=== PATIENT | female | born 1985 | race Caucasian/White ===

== ENCOUNTER 2017-01-08 22:23 | Inpatient (IN) ==
--- NOTE | 2017-01-08 22:42 | Emergency Department Note ---
Disposition Clinical Impression: Suicidal ideation Depression Qualifiers: Depression Type: unspecified Qualified Code(s): F32.9 - Major depressive disorder, single episode, unspecified Disposition: Still a Patient Condition: Fair Referrals: Unassigned,Provider [Primary Care Provider] - Forms: ED Satisfaction Letter Time of Disposition: 22:52 Psych HPI - General Chief Complaint: ED Psychiatric Symptoms Stated Complaint: "SI/Depressed" Time Seen by Provider: 01/08/17 22:32 Source: patient, family Mode of arrival: ambulatory Limitations: no limitations Nursing Notes Reviewed: Yes Vital Signs Reviewed: Yes - History of Present Illness HPI Narrative: Patient feels depressed and suicidal. She has thoughts of wrecking her car into a tree. She is methamphetamine several days ago. She denies other drugs or alcohol. She has a history of depression but does not take her antidepressant medications "because I did not think I needed them anymore." She presents in the care of her significant other and child Pt complaint: suicidal ideation, feels depressed Onset (ago): day(s) Duration: intermittent History of similar episodes: Yes Improves with: none Worsens with: none Context: recent drug abuse Alleged intoxication: No Associated Psychiatric Symptoms: depression, suicidal ideation Associated symptoms: Reports: denies other symptoms Traumatic symptoms: denies traumatic injury Treatments prior to arrival: none Self harm or harm to others: admits thoughts of self harm, has plan - Related Data Allergies Allergy/AdvReac Type Severity Reaction Status Date / Time No Known Allergies Allergy Verified 01/08/17 22:30 All systems ED: reviewed and negative except as stated. Constitutional: Reports: as per HPI Eyes: Reports: as per HPI ENT ED: Reports: as per HPI Cardiovascular: Reports: as per HPI Respiratory: Reports: as per HPI Gastrointestinal: Reports: as per HPI Genitourinary: Reports: as per HPI Musculoskeletal: Reports: as per HPI Integumentary: Reports: as per HPI Neurological: Reports: as per HPI Psychiatric: Reports: depression, suicidal thoughts Endocrine: Reports: as per HPI Hematological/Lymphatic: Reports: as per HPI Allergic/Immunologic: Reports: as per HPI Past Medical History - Past Medical History Source: patient Medical history: Reports: other (Borderline diabetes) Psychiatric history: Reports: depression - Social History Smoking Status: Current every day smoker Alcohol use: Reports: occasionally Drug use: Reports: methamphetamine Physical Exam Flat affect. Guarded. Appears depressed - General Limitations: no limitations General appearance: alert, in no apparent distress - Head Head exam: atraumatic - Eye Eye exam: Present: normal appearance - ENT ENT exam: normal exam - Neck Neck exam: Present: normal inspection - Chest Chest inspection: Present: normal inspection - Cardiovascular Cardiovascular exam: Present: regular rate, normal rhythm, normal heart sounds - Rectal Exam Rectal exam: Present: deferred - Extremities Exam Extremities exam: Present: normal inspection - Neurological Exam Neurological exam: Present: alert, oriented X3, CN II-XII intact - Psychiatric Psychiatric exam: Present: depressed, flat affect - Skin Skin exam: Present: warm, dry, intact Course Course Narrative: Patient presents depressed and suicidal. I will attempt to clear her medically for behavioral evaluation Care to be endorsed to Dr. Bosch at 11 PM pending medical clearance and planned behavioral evaluation Vital Signs Temperature 97.9 F 01/08/17 22:26 Pulse Rate 92 01/08/17 22:26 Respiratory Rate 20 01/08/17 22:26 Blood Pressure 152/84 01/08/17 22:26 O2 Sat by Pulse Oximetry 100 01/08/17 22:26 Temperature 97.9 F 01/08/17 22:26 Pulse Rate 92 01/08/17 22:26 Respiratory Rate 20 01/08/17 22:26 Blood Pressure 152/84 01/08/17 22:26 O2 Sat by Pulse Oximetry 100 01/08/17 22:26 Oxygen Delivery Oxygen Delivery Room Air Psychiatric Medical Clearance - Medical Clearance Checklist Medical History: No Social History Section defined Current Vitals: Last Vital Signs Temp 97.9 F 01/08/17 22:26 Pulse 92 01/08/17 22:26 Resp 20 01/08/17 22:26 BP 152/84 01/08/17 22:26 Pulse Ox 100 01/08/17 22:26 Statement of Medical Clearance: I have evaluated the patient, reviewed diagnostic information, and certify that the patient's medical condition is sufficiently stable that transfer to the psychiatric unit does not pose a significant risk of deterioration.
[2017-01-08 22:52] LABS: Bilirubin,Urine Negative (Negative); Blood,Urine Negative (Negative); Clarity,Urine Clear (Clear); Color,Urine Yellow (Yellow); Glucose,Urine (UA) Normal (Normal); Ketones,Urine Negative (Negative); Leukocyte Esterase,Urine Negative (Negative); Nitrite,Urine Positive (Negative); PH,Urine 5.5 pH Units (5.0-8.0); Protein,Urine Negative (Neg-Trace); Specific Gravity,Urine 1.024 (1.010-1.025); Urobilinogen,Urine Normal (Normal)
[2017-01-08 22:54] LABS: Bacteria,Urine Many per hpf (None-Few); Hyaline Casts,Urine None Seen per lpf (None-Few); Squamous Epithelial Cell,Urine Many per lpf (None-Few)
[2017-01-08 23:14] LABS: Basophils # 0.1 K/mcL (0.0-0.2); Basophils % 0.5 %; Eosinophils # 0.4 K/mcL (0.0-0.6); Eosinophils % 2.7 %; Immature Granulocytes % 0.7 % (0-4); Lymphocytes % 29.8 %; Mean Corpuscular HGB Conc 33.3 g/dL (31.6-35.5); Mean Corpuscular Hemoglobin 28.4 pg (28.0-33.3); Mean Corpuscular Volume 85.3 fL (83.0-100.0); Mean Platelet Volume 9.3 fL (9.4-12.4); Monocytes # 0.7 K/mcL (0.0-1.3); Monocytes % 5.2 %; Neutrophils # 8.1 K/mcL (1.6-8.9); Platelet Count 337 K/mcL (140-400); Red Blood Count 4.57 M/mcL (3.82-4.97); Red Cell Distribution Width 13.1 % (11.5-14.5); Segmented Neutrophils % 61.1 %
[2017-01-08 23:28] LABS: Alanine Aminotransferase 17 Units/L (0-55); Albumin 3.6 g/dL (3.5-5.0); Albumin/Globulin Ratio 0.9 (1.1-2.2); Alkaline Phosphatase 79 Units/L (38-126); Aspartate Amino Transferase 15 Units/L (5-34); BUN/Creatinine Ratio 15 (6-26); Bilirubin,Indirect 0.1 mg/dL (0.0-1.2); Bilirubin,Total 0.2 mg/dL (0.2-1.2); Blood Urea Nitrogen 13 mg/dL (7-20); Calcium 9.4 mg/dL (8.6-10.8); Carbon Dioxide 24 mEq/L (19-29); Chloride 108 mEq/L (98-109); Globulin 4.1 g/dL (2.4-3.5); Glucose 125 mg/dL (70-99); Osmolality,Calculated 296 (280-300); Sodium 142 mEq/L (136-145); Total Protein 7.7 g/dL (6.0-8.3); eGFR For African Americans > 60 (> 60); eGFR For Non-African Americans > 60 (> 60)
[2017-01-08 23:29] LABS: Bilirubin,Direct < 0.1 mg/dL (0.0-0.5)
[2017-01-09 00:21] LABS: Acetaminophen < 1.0 mcg/mL (10-30); Ethanol < 10 mg/dL (0-10); Salicylate < 5.0 mg/dL (15-30)
[2017-01-09] MEDS ORDERED: CefTRIAXone 1,000 MG VIAL IM ONE (00:54)
[2017-01-09 01:31] LABS: Thyroid Stimulating Hormone 2.403 mcIU/mL (0.350-4.840)
--- NOTE | 2017-01-09 01:42 | Emergency Department Note ---
Disposition Clinical Impression: Suicidal ideation Depression Qualifiers: Depression Type: unspecified Qualified Code(s): F32.9 - Major depressive disorder, single episode, unspecified UTI (urinary tract infection) Qualifiers: Urinary tract infection type: site unspecified Hematuria presence: without hematuria Qualified Code(s): N39.0 - Urinary tract infection, site not specified Disposition: Admitted As Inpatient Condition: Fair Psych HPI - General Chief Complaint: ED Psychiatric Symptoms Stated Complaint: "SI/Depressed" Time Seen by Provider: 01/08/17 22:32 Source: patient, family Mode of arrival: ambulatory - History of Present Illness Duration: intermittent Improves with: none Worsens with: none Associated symptoms: Reports: denies other symptoms Treatments prior to arrival: none - Related Data Allergies Allergy/AdvReac Type Severity Reaction Status Date / Time No Known Allergies Allergy Verified 01/08/17 22:30 Constitutional: Reports: as per HPI Eyes: Reports: as per HPI ENT ED: Reports: as per HPI Cardiovascular: Reports: as per HPI Respiratory: Reports: as per HPI Gastrointestinal: Reports: as per HPI Genitourinary: Reports: as per HPI Musculoskeletal: Reports: as per HPI Integumentary: Reports: as per HPI Neurological: Reports: as per HPI Psychiatric: Reports: depression, suicidal thoughts Endocrine: Reports: as per HPI Hematological/Lymphatic: Reports: as per HPI Allergic/Immunologic: Reports: as per HPI Past Medical History - Past Medical History Medical history: Reports: other (Borderline diabetes) Psychiatric history: Reports: depression - Social History Smoking Status: Current every day smoker Alcohol use: Reports: occasionally Drug use: Reports: methamphetamine Physical Exam - General Limitations: no limitations General appearance: alert, in no apparent distress Course Course Narrative: Patient's U/A shows infection. Culture ordered. Will treat with Rocephin. UDS added. The initial order was cancelled for some reason. Lab called to expedite this order. Patient otherwise medically cleared. She does not appear to be intoxicated or under the influence of any drugs at this time. Once UDS is back, [facility] will be called. [facility] called for consult. I spoke with FRANCISCO Kiran. She states that she will be up to talk to the patient beto. Patient was evaluated by [facility]. They will admit the patient for psychological as well as continued medical evaluation and treatment. Qiana is aware of patient' s diagnosis of UTI and treatment thus far. Culture results will be available tomorrow to guide further treatment. Vital Signs Temperature 97.9 F 01/08/17 22:26 Pulse Rate 92 01/08/17 22:26 Respiratory Rate 20 01/08/17 22:26 Blood Pressure 152/84 01/08/17 22:26 O2 Sat by Pulse Oximetry 100 01/08/17 22:26 Temperature 97.9 F 01/08/17 22:26 Pulse Rate 92 01/08/17 22:26 Respiratory Rate 0 01/09/17 03:50 Blood Pressure 0/0 01/09/17 03:50 O2 Sat by Pulse Oximetry 100 01/08/17 22:26 Oxygen Delivery Oxygen Delivery Room Air Psych - Lab Data Result diagrams: 01/08/17 22:56 01/08/17 22:56 Lab Results 01/08/17 01/08/17 01/08/17 Range/Units 22:35 22:35 22:35 WBC (4.3-11.1) K/mcL RBC (3.82-4.97) M/mcL Hgb (11.5-15.4) g/dL Hct (35.3-44.9) % MCV (83.0-100.0) fL MCH (28.0-33.3) pg MCHC (31.6-35.5) g/dL RDW (11.5-14.5) % Plt Count (140-400) K/mcL MPV (9.4-12.4) fL Immature Gran % (0-4) % Seg Neutrophils % % Lymphocytes % % Monocytes % % Eosinophils % % Basophils % % Neutrophils # (1.6-8.9) K/mcL Lymphocytes # (0.6-4.6) K/mcL Monocytes # (0.0-1.3) K/mcL Eosinophils # (0.0-0.6) K/mcL Basophils # (0.0-0.2) K/mcL Sodium (136-145) mEq/L Potassium (3.5-4.5) mEq/L Chloride (98-109) mEq/L Carbon Dioxide (19-29) mEq/L BUN (7-20) mg/dL Creatinine (0.57-1.11) mg/dL Est GFR ( Amer) (> 60) Est GFR (Non-Af Amer) (> 60) BUN/Creatinine Ratio (6-26) Glucose (70-99) mg/dL Calculated Osmolality (280-300) Calcium (8.6-10.8) mg/dL Total Bilirubin (0.2-1.2) mg/dL Direct Bilirubin (0.0-0.5) mg/dL Indirect Bilirubin (0.0-1.2) mg/dL AST (5-34) Units/L ALT (0-55) Units/L Alkaline Phosphatase (38-126) Units/L Serum Total Protein (6.0-8.3) g/dL Albumin (3.5-5.0) g/dL Globulin (2.4-3.5) g/dL Albumin/Globulin Ratio (1.1-2.2) TSH (0.350-4.840) mcIU/mL Serum , Qual (Negative) Urine Color Yellow (Yellow) Urine Clarity Clear (Clear) Urine pH 5.5 (5.0-8.0) pH Units Ur Specific [place] 1.024 (1.010-1.025) Urine Protein Negative (Neg-Trace) mg/dL Urine Glucose (UA) Normal (Normal) mg/dL Urine Ketones Negative (Negative) mg/dL Urine Blood Negative (Negative) Urine Nitrite Positive A (Negative) Urine Bilirubin Negative (Negative) Urine Urobilinogen Normal (Normal) mg/dL Ur Leukocyte Esterase Negative (Negative) Urine Microscopic RBC 3-5 H (0-3) per hpf Urine Microscopic WBC 5-15 H (0-3) per hpf Ur Squamous Epith Cells Many H (None-Few) per lpf Urine Bacteria Many H (None-Few) per hpf Hyaline Casts None Seen (None-Few) per lpf Urine Test Negative (Negative) Salicylates (15-30) mg/dL Urine Opiates Screen Negative (Upftmo=684) ng/mL Acetaminophen (10-30) mcg/mL Ur Barbiturates Screen Negative (Sxvdai=531) ng/mL Ur Phencyclidine Scrn Negative (Cutoff=25) ng/mL Ur Amphetamines Screen Positive H (Ceugov=2472) ng/mL U Benzodiazepines Scrn Negative (Gfxtcs=774) ng/mL Urine Cocaine Screen Negative (Cutoff= 300) ng/mL U Marijuana (THC) Screen Negative (Cutoff = 50) ng/mL Ethyl Alcohol (0-10) mg/dL 01/08/17 01/08/17 01/08/17 Range/Units 22:56 22:56 22:56 WBC 13.3 H (4.3-11.1) K/mcL RBC 4.57 (3.82-4.97) M/mcL Hgb 13.0 (11.5-15.4) g/dL Hct 39.0 (35.3-44.9) % MCV 85.3 (83.0-100.0) fL MCH 28.4 (28.0-33.3) pg MCHC 33.3 (31.6-35.5) g/dL RDW 13.1 (11.5-14.5) % Plt Count 337 (140-400) K/mcL MPV 9.3 L (9.4-12.4) fL Immature Gran % 0.7 (0-4) % Seg Neutrophils % 61.1 % Lymphocytes % 29.8 % Monocytes % 5.2 % Eosinophils % 2.7 % Basophils % 0.5 % Neutrophils # 8.1 (1.6-8.9) K/mcL Lymphocytes # 4.0 (0.6-4.6) K/mcL Monocytes # 0.7 (0.0-1.3) K/mcL Eosinophils # 0.4 (0.0-0.6) K/mcL Basophils # 0.1 (0.0-0.2) K/mcL Sodium 142 (136-145) mEq/L Potassium 4.0 (3.5-4.5) mEq/L Chloride 108 (98-109) mEq/L Carbon Dioxide 24 (19-29) mEq/L BUN 13 (7-20) mg/dL Creatinine 0.89 (0.57-1.11) mg/dL Est GFR ( Amer) > 60 (> 60) Est GFR (Non-Af Amer) > 60 (> 60) BUN/Creatinine Ratio 15 (6-26) Glucose 125 H (70-99) mg/dL Calculated Osmolality 296 (280-300) Calcium 9.4 (8.6-10.8) mg/dL Total Bilirubin 0.2 (0.2-1.2) mg/dL Direct Bilirubin < 0.1 (0.0-0.5) mg/dL Indirect Bilirubin 0.1 (0.0-1.2) mg/dL AST 15 (5-34) Units/L ALT 17 (0-55) Units/L Alkaline Phosphatase 79 (38-126) Units/L Serum Total Protein 7.7 (6.0-8.3) g/dL Albumin 3.6 (3.5-5.0) g/dL Globulin 4.1 H (2.4-3.5) g/dL Albumin/Globulin Ratio 0.9 L (1.1-2.2) TSH 2.403 (0.350-4.840) mcIU/mL Serum , Qual Negative (Negative) Urine Color (Yellow) Urine Clarity (Clear) Urine pH (5.0-8.0) pH Units Ur Specific [place] (1.010-1.025) Urine Protein (Neg-Trace) mg/dL Urine Glucose (UA) (Normal) mg/dL Urine Ketones (Negative) mg/dL Urine Blood (Negative) Urine Nitrite (Negative) Urine Bilirubin (Negative) Urine Urobilinogen (Normal) mg/dL Ur Leukocyte Esterase (Negative) Urine Microscopic RBC (0-3) per hpf Urine Microscopic WBC (0-3) per hpf Ur Squamous Epith Cells (None-Few) per lpf Urine Bacteria (None-Few) per hpf Hyaline Casts (None-Few) per lpf Urine Test (Negative) Salicylates < 5.0 L (15-30) mg/dL Urine Opiates Screen (Qqtmcd=445) ng/mL Acetaminophen < 1.0 L (10-30) mcg/mL Ur Barbiturates Screen (Dpfabj=616) ng/mL Ur Phencyclidine Scrn (Cutoff=25) ng/mL Ur Amphetamines Screen (Lsyujv=1050) ng/mL U Benzodiazepines Scrn (Jwhadd=157) ng/mL Urine Cocaine Screen (Cutoff= 300) ng/mL U Marijuana (THC) Screen (Cutoff = 50) ng/mL Ethyl Alcohol < 10 (0-10) mg/dL Psychiatric Medical Clearance - Medical Clearance Checklist Does the patient have a NEW psychiatric condition?: Yes Any abnormalities indicating possible medical illness?: Yes (UTI) Any history of medical issues?: Yes Medical History: No Social History Section defined Any abnormal vital signs prior to transfer?: No Current Vitals: Last Vital Signs Temp 97.9 F 01/08/17 22:26 Pulse 92 01/08/17 22:26 Resp 0 01/09/17 03:50 BP 0/0 01/09/17 03:50 Pulse Ox 100 01/08/17 22:26 Is the patient intoxicated or cognitively impaired?: No Psychiatric Lab Panel: Drug Levels and Toxicity 01/08/17 01/08/17 22:35 22:56 Urine Opiates Screen Negative Acetaminophen < 1.0 L Ur Barbiturates Screen Negative Ur Phencyclidine Scrn Negative Ur Amphetamines Screen Positive H U Benzodiazepines Scrn Negative Urine Cocaine Screen Negative U Marijuana (THC) Screen Negative Ethyl Alcohol < 10 Any abnormalities on the physical exam?: No Any abnormal labs?: Yes (UTI) Abnormal Labs: Abnormal lab results WBC 13.3 K/mcL (4.3-11.1) H 01/08/17 22:56 MPV 9.3 fL (9.4-12.4) L 01/08/17 22:56 Glucose 125 mg/dL (70-99) H 01/08/17 22:56 Globulin 4.1 g/dL (2.4-3.5) H 01/08/17 22:56 Albumin/Globulin Ratio 0.9 (1.1-2.2) L 01/08/17 22:56 Urine Nitrite Positive (Negative) A 01/08/17 22:35 Urine Microscopic RBC 3-5 per hpf (0-3) H 01/08/17 22:35 Urine Microscopic WBC 5-15 per hpf (0-3) H 01/08/17 22:35 Ur Squamous Epith Cells Many per lpf (None-Few) H 01/08/17 22:35 Urine Bacteria Many per hpf (None-Few) H 01/08/17 22:35 Salicylates < 5.0 mg/dL (15-30) L 01/08/17 22:56 Acetaminophen < 1.0 mcg/mL (10-30) L 01/08/17 22:56 Ur Amphetamines Screen Positive ng/mL (Mmaskz=4436) H 01/08/17 22:35 If abnormals exist; proposed resolution:: Rocephin 1gm IM, Urine culture ordered Does the patient require durable medical equiptment?: No Is the patient ambulatory?: Yes Is the patient a fall risk?: No Has the patient been medically cleared?: Yes Any acute medical condition require Tx prior to transfer?: Yes (UTI - Rocephin) Statement of Medical Clearance: I have evaluated the patient, reviewed diagnostic information, and certify that the patient's medical condition is sufficiently stable that transfer to the psychiatric unit does not pose a significant risk of deterioration.
[2017-01-09 01:56] LABS: Amphetamine Screen,Urine Positive ng/mL (Cutoff=1000); Barbiturate Screen,Urine Negative ng/mL (Cutoff=200); Benzodiazepines Screen,Urine Negative ng/mL (Cutoff=200); Cannabinoid Screen,Urine Negative ng/mL (Cutoff = 50); Cocaine Screen,Urine Negative ng/mL (Cutoff= 300); Opiate Screen,Urine Negative ng/mL (Cutoff=300); Phencyclidine Screen,Urine Negative ng/mL (Cutoff=25)
[2017-01-09] MEDS ORDERED: traZODone 50 MG TABLET PO PRN (04:46)
[2017-01-09] MEDS ORDERED: *HR* LORazepam 2 MG/ML VIAL IM PRN (04:46)
[2017-01-09] MEDS ORDERED: Acetaminophen 325 MG TABLET PO PRN (04:46)
[2017-01-09] MEDS ORDERED: Mag Hydrox/Al Hydrox/Simeth 30 ML UDC PO PRN (04:46)
[2017-01-09] MEDS ORDERED: Haloperidol Lactate 5 MG/ML VIAL IM PRN (04:46)
[2017-01-09] MEDS ORDERED: *HR* LORazepam 1 MG TABLET PO PRN (04:46)
[2017-01-09] MEDS ORDERED: MOM Conc 10 ML UD.LIQ PO PRN (04:46)
[2017-01-09] MEDS: hydrOXYzine pamoate 25 MG CAPSULE PO PRN ×2 (05:04→19:46)
--- NOTE | 2017-01-09 17:07 | Psychiatry History & Physical ---
Date of Encounter: 01/09/17 Time of Encounter: 17:04 History of Present Illness Patient Stated Chief Complaint: De[pression and suicidal thoughts. Medicare Admission Attestation: For traditional Medicare patients the provided hospital inpatient services are reasonable and necessary and in the case of services not specified as inpatient -only under 42 CFR 419.22 (n), that they are appropriately provided as inpatient services in accordance 42 CFR 412.3. For Critical Access Hospital the patient may reasonably be expected to be discharged or transferred to a hospital within 96 hours after admission to the Critical Access Hospital. Admitted From: Emergency Dept Plans for Post Hospital Care: Home History of Present Illness: Ms. Martinez is a 31 year old female with adolescent onset MDD withot psychosis. SHe has been on Sertraline more recently with a modest response so pt stopped taking it 2 months ago. She started having suicidal thoughts a month later and her depression worsened. She has erratic sleep pattern and anger outbursts that are unprovoked. SHe alternates between high and low appetite. Has poor memory and conc. Impulsive thoughts. Isolates herself and has anhedonia. She had thoughts of overdosing or wrecking her car but she lacked intent due to her 13 months old son. She denies having any manic / hypomanic periods but has excessive worry and panic attacks occassionally. Current stressors in clude: A friend who overdosed recently and almost ., She is also trying to move. Pt has no h/o pst suicide attempts or past psychiatric hospitalizations. She has been followed by a psychiatrist 2 yrs ago but did not follow up wih him after the delivery. Past Med Surg Social Fam HX - Past Medical History Medical history: other (Borderline diabetes) - Past Surgical History Surgical History: appendectomy, - Social History Smoking Status: Current every day smoker Smokeless Tobacco Status: No Alcohol use: occasionally Drug use: methamphetamine - Additional Family History Additional family history: Both parents and brother suffer from depression Medications & Allergies Norethindrone [Jencycla] 0.35 mg PO DAILY 01/09/17 [History] Sertraline [Zoloft] 100 mg PO DAILY 01/09/17 [History] Allergies No Known Allergies Allergy (Verified 01/09/17 10:37) Review of Systems Constitutional: Denies: fever, chills, weakness, weight change Eyes: Denies: eye pain, vision change Ears, Nose, Throat: Denies: ear pain, throat pain, dental pain, hearing loss, congestion Cardiovascular: Denies: chest pain, palpitations, dyspnea on exertion Respiratory: Denies: cough, dyspnea, wheezes Gastrointestinal: Denies: abdominal pain, nausea, vomiting, diarrhea, constipation Genitourinary male: Denies: urgency, dysuria, frequency, genital lesions Genitourinary female: Denies: urgency, dysuria, frequency, abnormal menses, dyspareunia Musculoskeletal: Denies: joint swelling, joint pain Integumentary: Denies: rash, lesions, pruritus Neurological: Denies: headache, weakness, numbness, memory loss Psychiatric: Reports: depression, anxiety, abnormal sleep pattern, change in appetite, anhedonia, memory loss, difficulty concentrating, hopelessness, irritability Endocrine: Denies: fatigue, heat or cold intolerance Hematologic/Lymphatic: Denies: easy bruising, lymphadenopathy Allergic/Immunologic: Denies: urticaria, itchy eyes Mental Status Exam Patient orientation: Yes Person, Yes Time, Yes Place Level of alertness: Alert Patient appearance: Appropriate, Well Groomed Behavior: calm, cooperative Psychomotor activity: Normal Eye contact: Maintains Eye Contact Mood description: Depressed, Anxious, Irritable Affect description: congruent with mood, dysphoric Speech pattern: Normal rate Speech volume: Normal Thought process: Intact, Logical, Linear, Goal Oriented Thought content: Yes Intact Perceptual disturbances: No Auditory hallucinations, No Visual hallucinations Attention span: Unable to Sustain Attention Memory description: Recent Impaired Patient reliability: Reliable Historian Intelligence estimate: Average Judgment: Fair Insight: Full Results - Vital Signs Vital signs: Temp Pulse Resp BP Pulse Ox 98.2 F 63 18 125/72 100 01/09/17 09:00 01/09/17 09:00 01/09/17 09:00 01/09/17 09:00 01/08/17 22:26 - Labs Labs: Laboratory Last Values WBC 13.3 K/mcL (4.3-11.1) H 01/08/17 22:56 RBC 4.57 M/mcL (3.82-4.97) 01/08/17 22:56 Hgb 13.0 g/dL (11.5-15.4) 01/08/17 22:56 Hct 39.0 % (35.3-44.9) 01/08/17 22:56 MCV 85.3 fL (83.0-100.0) 01/08/17 22:56 MCH 28.4 pg (28.0-33.3) 01/08/17 22:56 MCHC 33.3 g/dL (31.6-35.5) 01/08/17 22:56 RDW 13.1 % (11.5-14.5) 01/08/17 22:56 Plt Count 337 K/mcL (140-400) 01/08/17 22:56 MPV 9.3 fL (9.4-12.4) L 01/08/17 22:56 Immature Gran % 0.7 % (0-4) 01/08/17 22:56 Seg Neutrophils % 61.1 % 01/08/17 22:56 Lymphocytes % 29.8 % 01/08/17 22:56 Monocytes % 5.2 % 01/08/17 22:56 Eosinophils % 2.7 % 01/08/17 22:56 Basophils % 0.5 % 01/08/17 22:56 Neutrophils # 8.1 K/mcL (1.6-8.9) 01/08/17 22:56 Lymphocytes # 4.0 K/mcL (0.6-4.6) 01/08/17 22:56 Monocytes # 0.7 K/mcL (0.0-1.3) 01/08/17 22:56 Eosinophils # 0.4 K/mcL (0.0-0.6) 01/08/17 22:56 Basophils # 0.1 K/mcL (0.0-0.2) 01/08/17 22:56 Sodium 142 mEq/L (136-145) 01/08/17 22:56 Potassium 4.0 mEq/L (3.5-4.5) 01/08/17 22:56 Chloride 108 mEq/L (98-109) 01/08/17 22:56 Carbon Dioxide 24 mEq/L (19-29) 01/08/17 22:56 BUN 13 mg/dL (7-20) 01/08/17 22:56 Creatinine 0.89 mg/dL (0.57-1.11) 01/08/17 22:56 Est GFR ( Amer) > 60 (> 60) 01/08/17 22:56 Est GFR (Non-Af Amer) > 60 (> 60) 01/08/17 22:56 BUN/Creatinine Ratio 15 (6-26) 01/08/17 22:56 Glucose 125 mg/dL (70-99) H 01/08/17 22:56 Calculated Osmolality 296 (280-300) 01/08/17 22:56 Calcium 9.4 mg/dL (8.6-10.8) 01/08/17 22:56 Total Bilirubin 0.2 mg/dL (0.2-1.2) 01/08/17 22:56 Direct Bilirubin < 0.1 mg/dL (0.0-0.5) 01/08/17 22:56 Indirect Bilirubin 0.1 mg/dL (0.0-1.2) 01/08/17 22:56 AST 15 Units/L (5-34) 01/08/17 22:56 ALT 17 Units/L (0-55) 01/08/17 22:56 Alkaline Phosphatase 79 Units/L (38-126) 01/08/17 22:56 Serum Total Protein 7.7 g/dL (6.0-8.3) 01/08/17 22:56 Albumin 3.6 g/dL (3.5-5.0) 01/08/17 22:56 Globulin 4.1 g/dL (2.4-3.5) H 01/08/17 22:56 Albumin/Globulin Ratio 0.9 (1.1-2.2) L 01/08/17 22:56 TSH 2.403 mcIU/mL (0.350-4.840) 01/08/17 22:56 Serum , Qual Negative (Negative) 01/08/17 22:56 Urine Color Yellow (Yellow) 01/08/17 22:35 Urine Clarity Clear (Clear) 01/08/17 22:35 Urine pH 5.5 pH Units (5.0-8.0) 01/08/17 22:35 Ur Specific [place] 1.024 (1.010-1.025) 01/08/17 22:35 Urine Protein Negative mg/dL (Neg-Trace) 01/08/17 22:35 Urine Glucose (UA) Normal mg/dL (Normal) 01/08/17 22:35 Urine Ketones Negative mg/dL (Negative) 01/08/17 22:35 Urine Blood Negative (Negative) 01/08/17 22:35 Urine Nitrite Positive (Negative) A 01/08/17 22:35 Urine Bilirubin Negative (Negative) 01/08/17 22:35 Urine Urobilinogen Normal mg/dL (Normal) 01/08/17 22:35 Ur Leukocyte Esterase Negative (Negative) 01/08/17 22:35 Urine Microscopic RBC 3-5 per hpf (0-3) H 01/08/17 22:35 Urine Microscopic WBC 5-15 per hpf (0-3) H 01/08/17 22:35 Ur Squamous Epith Cells Many per lpf (None-Few) H 01/08/17 22:35 Urine Bacteria Many per hpf (None-Few) H 01/08/17 22:35 Hyaline Casts None Seen per lpf (None-Few) 01/08/17 22:35 Urine Test Negative (Negative) 01/08/17 22:35 Salicylates < 5.0 mg/dL (15-30) L 01/08/17 22:56 Urine Opiates Screen Negative ng/mL (Rmtcce=007) 01/08/17 22:35 Acetaminophen < 1.0 mcg/mL (10-30) L 01/08/17 22:56 Ur Barbiturates Screen Negative ng/mL (Mflnem=751) 01/08/17 22:35 Ur Phencyclidine Scrn Negative ng/mL (Cutoff=25) 01/08/17 22:35 Ur Amphetamines Screen Positive ng/mL (Fjyuuc=0866) H 01/08/17 22:35 U Benzodiazepines Scrn Negative ng/mL (Wjbkfb=826) 01/08/17 22:35 Urine Cocaine Screen Negative ng/mL (Cutoff= 300) 01/08/17 22:35 U Marijuana (THC) Screen Negative ng/mL (Cutoff = 50) 01/08/17 22:35 Ethyl Alcohol < 10 mg/dL (0-10) 01/08/17 22:56 Assessment and Plan (1) Depression Current visit: Yes Status: Acute Plan: Admit inpatient for safety and stabilization, Close observation, Suicide Precautions per unit protocol, Encourage participation in unit milieu, Group Therapy, Monitor sleep, Monitor appetite Additional Plan: Start Trileptal to address depression and anxiety. Risks, benefits, side effects, alternatives discussed w/pt: Yes Patient agreeable to treatment: Yes Plans for Post Hospital Care: Home Estimated Length of Stay (Days): 5 Qualifiers: Depression Type: major depressive disorder Major depression recurrence: recurrent Active/Remission status: currently active Major depression episode severity: severe Psychotic features: without psychotic features Qualified Code(s): F33.2 - Major depressive disorder, recurrent severe without psychotic features (2) Suicidal ideation Current visit: Yes Status: Acute Plan: Admit inpatient for safety and stabilization, Close observation, Suicide Precautions per unit protocol, Encourage participation in unit milieu, Group Therapy, Monitor sleep, Monitor appetite
[2017-01-09] MEDS: Nicotine 2 MG GUM BC PRN (19:47)
[2017-01-09] MEDS: OXcarbazepine 150 MG TABLET PO SCH (21:16)
[2017-01-10] MEDS: OXcarbazepine 150 MG TABLET PO SCH ×3 (08:58→22:14)
[2017-01-10] MEDS: Nicotine 2 MG GUM BC PRN ×3 (08:59→17:57)
--- NOTE | 2017-01-10 18:18 | Psychiatry Progress Note ---
Date of Encounter: 01/10/17 Time of Encounter: 18:16 Subjective Interval history: Pt was very angry last evening but it helped her see how her anger has negative consequences. She slept better last night and feels she can get better. She is going to groups and activities. She is trying to interact with peers and staff. Review of Systems Psychiatric: Reports: depression, anxiety, change in appetite, anhedonia, memory loss, difficulty concentrating, hopelessness, irritability Objective: Exam Patient orientation: Yes Person, Yes Time, Yes Place Level of alertness: Alert Patient appearance: Appropriate, Well Groomed Behavior: calm, cooperative Psychomotor activity: Normal Eye contact: Maintains Eye Contact Mood description: Depressed, Anxious, Irritable Affect description: congruent with mood, dysphoric Speech pattern: Normal rate Speech volume: Normal Thought process: Intact, Logical, Linear, Goal Oriented Thought content: Yes Intact Perceptual disturbances: No Auditory hallucinations, No Visual hallucinations Judgment: Fair Insight: Full Results - Vital Signs Vital Signs: Temp Pulse Resp BP Pulse Ox 98.4 F 18 18 113/76 100 01/10/17 09:00 01/10/17 09:00 01/10/17 09:00 01/10/17 09:00 01/08/17 22:26 Assessment and Plan (1) Depression Current visit: Yes Status: Acute Additional Plan: WIll increase Trileptal and check Chem 7. Risks, benefits, side effects, alternatives discussed w/pt: Yes Patient agreeable to treatment: Yes Qualifiers: Depression Type: major depressive disorder Major depression recurrence: recurrent Active/Remission status: currently active Major depression episode severity: severe Psychotic features: without psychotic features Qualified Code(s): F33.2 - Major depressive disorder, recurrent severe without psychotic features (2) Suicidal ideation Current visit: Yes Status: Acute Consult Discharge Plan - Plan Referrals: [facility] [Outside]
[2017-01-11] MEDS: Nicotine 2 MG GUM BC PRN ×2 (01:35→10:19)
[2017-01-11 08:58] LABS: BUN/Creatinine Ratio 16 (6-26); Blood Urea Nitrogen 11 mg/dL (7-20); Calcium 8.6 mg/dL (8.6-10.8); Carbon Dioxide 27 mEq/L (19-29); Chloride 105 mEq/L (98-109); Glucose 122 mg/dL (70-99); Osmolality,Calculated 291 (280-300); Potassium 4.1 mEq/L (3.5-4.5); Sodium 140 mEq/L (136-145); eGFR For African Americans > 60 (> 60); eGFR For Non-African Americans > 60 (> 60)
[2017-01-11] MEDS: OXcarbazepine 150 MG TABLET PO SCH ×3 (09:54→20:27)
[2017-01-11] MEDS: hydrOXYzine pamoate 25 MG CAPSULE PO PRN ×2 (12:17→20:26)
--- NOTE | 2017-01-11 17:04 | Psychiatry Progress Note ---
Date of Encounter: 01/11/17 Time of Encounter: 17:02 Subjective Interval history: Pt reports taht her stress level has gone up as her father called CPS worrying about the safety of her 13 mth old son. She slept OK with sleep meds. No s/e on Trileptal. It seems to be helping her. Review of Systems Psychiatric: Reports: depression, anxiety, change in appetite, anhedonia, memory loss, difficulty concentrating, hopelessness, irritability Objective: Exam Patient orientation: Yes Person, Yes Time, Yes Place Level of alertness: Alert Patient appearance: Appropriate, Well Groomed Behavior: calm, cooperative, tearful Psychomotor activity: Normal Eye contact: Maintains Eye Contact Mood description: Depressed, Anxious, Irritable Affect description: congruent with mood, dysphoric Speech pattern: Normal rate Speech volume: Normal Thought process: Intact, Logical, Linear, Goal Oriented Thought content: Yes Intact Perceptual disturbances: No Auditory hallucinations, No Visual hallucinations Judgment: Fair Insight: Full Results - Vital Signs Vital Signs: Temp Pulse Resp BP Pulse Ox 98.2 F 83 18 138/57 100 01/11/17 08:39 01/11/17 08:39 01/11/17 08:39 01/11/17 08:39 01/08/17 22:26 - Labs Labs: Laboratory Results - last 24 hr 01/11/17 08:07 Sodium 140 Potassium 4.1 Chloride 105 Carbon Dioxide 27 BUN 11 Creatinine 0.67 Est GFR ( Amer) > 60 Est GFR (Non-Af Amer) > 60 BUN/Creatinine Ratio 16 Glucose 122 H Calculated Osmolality 291 Calcium 8.6 Assessment and Plan (1) Depression Current visit: Yes Status: Acute Additional Plan: Cont Trileptal for depression/anxiety. Checking Chem 7. Risks, benefits, side effects, alternatives discussed w/pt: Yes Patient agreeable to treatment: Yes Qualifiers: Depression Type: major depressive disorder Major depression recurrence: recurrent Active/Remission status: currently active Major depression episode severity: severe Psychotic features: without psychotic features Qualified Code(s): F33.2 - Major depressive disorder, recurrent severe without psychotic features (2) Suicidal ideation Current visit: Yes Status: Acute Consult Discharge Plan - Plan Referrals: [facility] [Outside] - 01/24/17 8:15 am (The above appointment is with Thea Donnelly. You will also see Claudette Brar, therapist , on)
[2017-01-12] MEDS: OXcarbazepine 150 MG TABLET PO SCH ×2 (09:14→20:33)
[2017-01-12] MEDS: Nicotine 2 MG GUM BC PRN ×2 (12:36→16:25)
--- NOTE | 2017-01-12 17:51 | Psychiatry Progress Note ---
Date of Encounter: 01/12/17 Time of Encounter: 17:49 Subjective Interval history: Pt reports that she is not getting bogged down about negative developments in her life that have happened since her admission. She is responding in a positive nd effective way and she attributes this to her mood being more stable on Trileptal . She does not have the same level of anxiety. Review of Systems Psychiatric: Reports: depression, anxiety, change in appetite, anhedonia, memory loss, difficulty concentrating Objective: Exam Patient orientation: Yes Person, Yes Time, Yes Place Level of alertness: Alert Patient appearance: Appropriate, Well Groomed Behavior: calm, cooperative, tearful Psychomotor activity: Normal Eye contact: Maintains Eye Contact Mood description: Depressed, Anxious, Irritable Affect description: congruent with mood, dysphoric Speech pattern: Normal rate Speech volume: Normal Thought process: Intact, Logical, Linear, Goal Oriented Thought content: Yes Intact Perceptual disturbances: No Auditory hallucinations, No Visual hallucinations Judgment: Fair Insight: Full Results - Vital Signs Vital Signs: Temp Pulse Resp BP Pulse Ox 98.4 F 89 18 117/74 100 01/12/17 09:00 01/12/17 09:00 01/12/17 09:00 01/12/17 09:00 01/08/17 22:26 Assessment and Plan (1) Depression Current visit: Yes Status: Acute Plan: Continue hospitalization, Monitor sleep, Monitor appetite Risks, benefits, side effects, alternatives discussed w/pt: Yes Patient agreeable to treatment: Yes Qualifiers: Depression Type: major depressive disorder Major depression recurrence: recurrent Active/Remission status: currently active Major depression episode severity: severe Psychotic features: without psychotic features Qualified Code(s): F33.2 - Major depressive disorder, recurrent severe without psychotic features (2) Suicidal ideation Current visit: Yes Status: Resolved Risks, benefits, side effects, alternatives discussed w/pt: Yes Patient agreeable to treatment: Yes Consult Discharge Plan - Plan Referrals: [facility] [Outside] - 01/24/17 8:15 am (The above appointment is with Thea Donnelly. You will also see Claudette Brar, therapist , on)
[2017-01-12] MEDS: hydrOXYzine pamoate 25 MG CAPSULE PO PRN (19:40)
[2017-01-13] MEDS: OXcarbazepine 150 MG TABLET PO SCH (08:29)
[2017-01-13 09:32] VITALS: BP 131/68
--- NOTE | 2017-01-13 15:05 | Discharge Summary ---
Date of Encounter: 01/13/17 Time of Encounter: 15:03 Diagnosis - Discharge Diagnosis (1) Depression Status: Acute Qualifiers: Depression Type: major depressive disorder Major depression recurrence: recurrent Active/Remission status: currently active Major depression episode severity: severe Psychotic features: without psychotic features Qualified Code(s): F33.2 - Major depressive disorder, recurrent severe without psychotic features (2) Suicidal ideation Priority: Secondary Status: Resolved Medications - Discharge Medications Prescriptions: Nicotine Gum [Nicorette gum] 4 mg BC Q2H PRN #80 gum PRN Reason: Nicotine Cravings Oxcarbazepine [Trileptal] 450 mg PO BID #180 tablet Nicotine Gum [Nicorette gum] 4 mg BC Q2H PRN #80 gum 01/13/17 [Rx] Oxcarbazepine [Trileptal] 450 mg PO BID #180 tablet 01/13/17 [Rx] Allergies No Known Allergies Allergy (Verified 01/09/17 10:37) Results Procedures and tests throughout hospitalization: Completed Lab Orders Category Date Time Status Chem 7 [Basic Metabolic Panel] Routine Lab 01/11/17 08:07 Completed Provider Date of admission: 01/09/17 03:55 Primary care physician: PCP NO Discharging clinician: Francisco Henriquez Assessment and Plan - Patient/Caregiver Discharge Instructions Activity: resume usual activities as tolerated Diet: regular diet - Follow up Plan Follow up with: [facility] [Outside] (To establish as a client, you may walk in any Monday from @ 9:30am 10:30am, from 12:30pm 1:30pm, or Monday from 8:30am 9:30am. You will have an initial assessment when you walk-in. The assessment will last two hours. Based on your assessment, you may be scheduled for the following services: mental health counseling, psychiatric prescriber services, substance abuse counseling. Bring , SSN, proof of address and income and insurance card(s). ) [facility] [Outside] - 01/24/17 8:15 am (The above appointment is with Thea Donnelly. ) Overall status at discharge: Stable Disposition: Home, Self-Care Hospital Course Hospital course: Ms. Martinez is a 31 year old female with MDD and YVAN who had progressive increase in her depression and became acutely suicidal with a plan to wreck her car but instead she sought help in the ER. Upon admission pt appeared to be in severe distress. She cooperated with the treatment and was started on Trileptal with good reponse . Her suicidality resolved, her sleep improved and she became more social with peers. Her Chem 7 showed no hypokalemia or hyponatremia. She was able to handle the stress of CPS taking her baby boy and responded appropriately. She understands that she needs to get drug rehab to be able to have her baby back. Time spent discussing smoking cessation with patient: 3 to 10 minutes Does patient wish to continue nicotine replacement upon disc: Yes - Time Spent with Patient Total time spent providing and/or coordinating discharge services: Less than 30 minutes Quality - Multiple Antipsychotics Patient discharged on 2 or more antipsychotic medications: No Procedures - Procedures Procedures: Medication Management, Crisis Stabilization, Supportive Therapy, Group Therapy, Psychoeducational Therapy Mental Status Exam - Mental Status Exam Patient orientation: Yes Person, Yes Time, Yes Place Level of alertness: Alert Patient appearance: Appropriate, Well Groomed Behavior: calm, cooperative, tearful Psychomotor activity: Normal Eye contact: Maintains Eye Contact Mood description: Depressed, Anxious, Irritable Affect description: congruent with mood, dysphoric Speech pattern: Normal rate Speech Volume: Normal Thought process: Intact, Logical, Linear, Goal Oriented Thought Content: Yes Intact Perceptual Disturbances: No Auditory hallucinations, No Visual hallucinations Judgment: Fair Insight: Full
--- NOTE | 2017-01-13 15:48 | Discharge Summary ---
Date of Encounter: 01/13/17 Time of Encounter: 15:49 Diagnosis - Discharge Diagnosis (1) Depression Status: Acute Qualifiers: Depression Type: major depressive disorder Major depression recurrence: recurrent Active/Remission status: currently active Major depression episode severity: severe Psychotic features: without psychotic features Qualified Code(s): F33.2 - Major depressive disorder, recurrent severe without psychotic features (2) Suicidal ideation Status: Resolved Medications - Discharge Medications Prescriptions: Nicotine Gum [Nicorette gum] 4 mg BC Q2H PRN #80 gum PRN Reason: Nicotine Cravings Oxcarbazepine [Trileptal] 450 mg PO BID #180 tablet Nicotine Gum [Nicorette gum] 4 mg BC Q2H PRN #80 gum 01/13/17 [Rx] Oxcarbazepine [Trileptal] 450 mg PO BID #180 tablet 01/13/17 [Rx] Allergies No Known Allergies Allergy (Verified 01/09/17 10:37) Results Procedures and tests throughout hospitalization: Completed Lab Orders Category Date Time Status Chem 7 [Basic Metabolic Panel] Routine Lab 01/11/17 08:07 Completed Provider Date of admission: 01/09/17 03:55 Primary care physician: PCP NO Assessment and Plan - Patient/Caregiver Discharge Instructions Activity: resume usual activities as tolerated Diet: regular diet - Follow up Plan Follow up with: [facility] [Outside] (To establish as a client, you may walk in any Monday from @ 9:30am 10:30am, from 12:30pm 1:30pm, or Monday from 8:30am 9:30am. You will have an initial assessment when you walk-in. The assessment will last two hours. Based on your assessment, you may be scheduled for the following services: mental health counseling, psychiatric prescriber services, substance abuse counseling. Bring , SSN, proof of address and income and insurance card(s). ) [facility] [Outside] - 01/24/17 8:15 am (The above appointment is with Thea Donnelly. ) Disposition: Home, Self-Care Hospital Course Hospital course: Ms. Martinez is a 31 year old female - Time Spent with Patient Total time spent providing and/or coordinating discharge services: Quality - Multiple Antipsychotics Patient discharged on 2 or more antipsychotic medications: No Mental Status Exam - Mental Status Exam Patient orientation: Yes Person, Yes Time, Yes Place Level of alertness: Alert Patient appearance: Appropriate, Well Groomed Behavior: calm, cooperative, tearful Psychomotor activity: Normal Eye contact: Maintains Eye Contact Mood description: Depressed, Anxious, Irritable Affect description: congruent with mood, dysphoric Speech pattern: Normal rate Speech Volume: Normal Thought process: Intact, Logical, Linear, Goal Oriented Thought Content: Yes Intact Perceptual Disturbances: No Auditory hallucinations, No Visual hallucinations Judgment: Fair Insight: Full
[2017-01-13] MEDS: Nicotine 2 MG GUM BC PRN (16:27)
== END 2017-01-13 17:15 | disposition home or self-care (01) | DRG 885 ==
LOC: EMEROO 22:23 → SUATTDRO 01-09 03:55 → 1ANU 01-09 03:55
PROVIDERS: ADMIT Psychiatry & Neurology Psychiatry; ATTEND Psychiatry & Neurology Psychiatry